=== PATIENT | female | born 1950 | race Caucasian/White ===

== ENCOUNTER 2018-10-03 09:38 | Emergency (ER) | payer MEDICARE, SELFPAY ==
[2018-10-03 09:39] VITALS: BP 185/78; PULSE 49; RESP 20; TEMP 36.7; O2SAT 96; BMI 47.9
--- NOTE | 2018-10-03 10:03 | RAD_ITS ---
STUDY: X-RAY - LUMBAR SPINE REASON FOR EXAM: Female, 68 years old. Right flank pain following a fall. TECHNIQUE: 3 view(s) of the lumbar spine were obtained. COMPARISON: None FINDINGS: Normal lumbar lordosis. There is no substantial scoliosis. There is a normal alignment of the vertebrae. There is multilevel endplate spondylosis of the lumbar vertebrae. There is multi-level degenerative disc disease with multi-level disc space narrowing. There is atherosclerotic calcification of the abdominal aorta without a demonstrated aneurysm. RAD/Lumbar Spine 2 or 3 Views IMPRESSION: Degenerative changes of the spine, as detailed above. Electronically Signed: Eriberto Marshall, at 11:28 EDT , Service support ,
[2018-10-03] MEDS: oxyCODONE 5 MG Tablet PO (10:38)
[2018-10-03 10:47] LABS: Red Blood Cells-Urine 0 SEEN /hpf (0-5)
[2018-10-03 10:51] LABS: Color, Urine Yellow (Yellow); Glucose, Dipstick Normal (Normal); Ketone-Dipstick 5 mg/dl (Negative); Leukocyte Esterase-Dipstick Negative /ul (Negative); Nitrite-Dipstick Negative (Negative); Occult Blood-Urine 10 /ul (Negative); Protein-Dipstick 30 mg/dl (Negative); Urine Bilirubin Dipstick 1 mg/dL (Negative); Urine Clarity Clear (Clear); Urine Urobilinogen Normal (Normal)
[2018-10-03 10:59] LABS: Amorphous Sediment 1+; Bacteria 2+ /hpf (None Seen); Mucous, Urine 2+ /hpf (<or=2+); Squamous Epithelial Cells - UA 0-5 SEEN /hpf (5-10); White Blood Cells 0-5 SEEN /hpf (0-5)
--- NOTE | 2018-10-03 11:45 | ED.VISSUMM ---
- ER Visit Summary Date of Service: 10/03/18 Chief Complaint: Right lower back pain History of Present Illness: The patient is a 68 F who has had right lower back pain for the past 4 days. She describes sharp pain in the right lower back. It does not radiate. She states it is worse with movement and better with rest. Denies any numbness or tingling in her arms or legs. She does have a history of back issues in the past. She took Tylenol without any relief at home. She denies any bowel or bladder incontinence. Physical Examination: Vital signs are reviewed. HEENT exam unremarkable. Heart is regular rate and rhythm. Lungs are clear. Abdomen soft nontender. She has right paraspinal lumbar tenderness. Extremities have no edema or trauma. Her neurologic exam is normal. Test Results: Urinalysis is negative for infection or blood. X-rays of the lumbar spine revealed degenerative disc disease. Emergency Department Course and Treatment: The patient was given 1 oxycodone and she feels much better. This is likely musculoskeletal pain. Patient will be given a short course of oxycodone for pain at home. I reviewed her prescription report and she has no prescriptions for narcotics over the past 2 years. She will need to follow-up with her PCP Treatment Plan: [] Disposition: Discharge Impression: Lumbosacral strain This note was generated with [employer] dictation software. It may contain incorrect words, spelling, and punctuation that were not noted in review of the chart prior to signing ED Disposition - Plan for ED Patient: Disposition: Home or Assisted Living Instructions: BACK AND NECK PAIN, General Prescriptions: Oxycodone HCl/Acetaminophen [Percocet 5/325] 1 tab PO Q6H PRN PRN 3 Days #10 tab PRN Reason: Pain Prescription Printed Referrals: Karla Michaels MD [Primary Care Provider] -
[2018-10-03 12:08] VITALS: BP 148/53; PULSE 52; RESP 18; O2SAT 99
== END 2018-10-03 12:09 | disposition home or self-care (01) ==
PROVIDERS: Emergency Provider Emergency Medicine; Family Provider Internal Medicine; PCP Internal Medicine
DX: S39.012A Strain of muscle, fascia and tendon of lower back, initial encounter (principal); X58.XXXA Exposure to other specified factors, initial encounter; Y93.9 Activity, unspecified; Y92.9 Unspecified place or not applicable; E11.9 Type 2 diabetes mellitus without complications; I10 Essential (primary) hypertension; Z79.899 Other long term (current) drug therapy
CPT/HCPCS: 72100; 81001; 99284

== ENCOUNTER 2018-12-10 12:05 | Emergency (ER) | payer MEDICARE, SELFPAY ==
[2018-12-10 12:06] VITALS: BP 164/62; PULSE 69; RESP 15; TEMP 36.6; O2SAT 96; BMI 48.2
[2018-12-10 12:09] VITALS: BP 164/62; PULSE 63; RESP 15; O2SAT 96
--- NOTE | 2018-12-10 12:15 | ED.VIS.GEN ---
History of Present Illness Chief Complaint: Back Informant: Patient Onset: Today Context: Sudden Onset Timing: Continuous Quality: Pain Location: Right lower back Current Severity: Mild Maximum Severity: Severe Worsened by: Movement Relieved by: Nothing Associated Symptoms: No associated symptoms or radiation Narrative: Patient is a elderly female who presents with acute right low back pain. She was sitting a chair when she felt a pop. She states was unable to ambulate. She has history of herniated disc documented by MRI 1986. She denies bowel bladder dysfunction. She denies buckling of her knees going up or down steps. She denies foot drop. She denies radicular pain. She denies saddle paresthesia or anesthesia. She denies fever, chills night sweats. She denies weight loss or weight gain. She denies dysuria, frequency, urgency or hematuria. She denies gynecologic symptoms. Prior similar symptoms: Yes Recent Illness/Hospitalization: No - Past Medical History (1) History of hypertension Status: Acute (2) History of metabolic syndrome Status: Acute Past Medical History - Allergies and Home Meds Allergies/Adverse Reactions: Allergies diclofenac Allergy (Verified 10/03/18 09:41) Other influenza virus vaccine, specific [influenza virus vacc,specific] Allergy (Verified 10/03/18 09:41) Other Penicillins Allergy (Verified 10/03/18 09:41) Rash Primary Care Physician: Karla Michaels MD [Primary Care Provider] - Prior records reviewed: Yes Surgical History: - - Left total knee arthroplasty Lives: Alone Smoking Status: Never smoker Alcohol: None Drugs: None Review of Systems General: Denies: Chills, Fever, Sweats Eyes: Denies: Visual changes - bilaterally, Diplopia ENT: Denies: Rhinorrhea, Sore throat Cardiovascular: Denies: Chest pain, Palpitations Respiratory: Denies: Dyspnea, Cough, Dyspnea on exertion Gastrointestinal: Denies: Abdominal pain, Nausea, Vomiting, Diarrhea, Melena, Hematochezia Genitourinary: Denies: Dysuria, Hematuria, Frequency Musculoskeletal: Reports: Back pain. Denies: Myalgias, Arthralgias, Neck pain, Swelling, Extremity Pain, -, - Skin: Denies: Rash, Wounds Neurological: Denies: Headache, Weakness, Numbness Endocrine: Denies: Polyuria, Polydipsia Hematologic: Denies: Easy bruising, Easy bleeding Allergy: Denies: Uticaria, Swelling of the mouth Physical Exam Vital Signs/Narrative: Vital Signs Temp Pulse Resp BP Pulse Ox 12/10/18 12:09 63 15 164/62 H 96 12/10/18 12:06 97.9 F 69 15 164/62 H 96 Inital Vital Signs reviewed: Yes General: Well nourished, Well developed, Obese, No Acute Distress Head: Normocephalic, Atraumatic Eyes: Perrl, EOMI ENT: Moist mucous membranes, No rhinorrhea Neck: Supple, Nontender Cardiovascular: Regular rate, Regular rhythm, No murmurs, Normal S1, Normal S2 Respiratory: No distress, CTA bilaterally, Chest nontender Abdomen: Soft, Nontender, Nondistended, Normal bowel sounds Back: Nontender, Normal Inspection, - - Is pain palpation right lower back. Movement causes her pain. Straight leg test is negative right and left. Patella and ankle reflexes are 1+. EHL is intact. 5/5 strength dorsi and plantarflexion of the foot. Normal sensation medial, dorsal and lateral side of right and left foot. Normal perianal sensation. Gait was not tested since patient states she is in too much pain. There are multiple abrasions lower extremity secondary to patient's dog.. Negative for: CVA tenderness, Spinal tenderness Extremities: Nontender, No edema Skin: Normal color, No rash Neurological: Alert, Oriented x3, Cranial nerves II-XII grossly intact, Normal Strength, Normal Sensation Psychological: Normal affect, Normal Mood Diagnostic/Tx/Re-eval - Medical Decision Making Patient with history of herniated disc. She does not recall the level. Patient's exam is not consistent with herniated disc. Will medicate and assess gait and quadricep strength. Since pain is reproducible doubt ureterolithiasis with obstruction or intra-abdominal pathology. Her abdominal exam is normal. She was reassessed at 1330. She is smiling. States the pain is markedly better. Will discharge with short course of opiate analgesia since NSAIDs are contraindicated. ED Disposition - Plan for ED Patient: Disposition: Home or Assisted Living Diagnosis: Acute right-sided low back pain without sciatica Instructions: BACK PAIN (Acute or Chronic) Prescriptions: Hydrocodone Bitart/Apap 5-325 [[place] 5MG-325MG] 1 tablet PO Q6H PRN PRN 3 Days #10 tablet PRN Reason: Pain Transmission Status: Received by [id number] Referrals: Karla Michaels MD [Primary Care Provider] - 3-5 Days if not improving Additional Instructions: Your prescription was electronically transmitted to [facility] pharmacy located in [place], your designated pharmacy of choice
[2018-12-10] MEDS: morphine 8 MG/ML Syringe IV (12:26)
[2018-12-10] MEDS: Ondansetron 4 MG/2 ML Vial IV (12:26)
[2018-12-10 13:47] VITALS: BP 152/66; PULSE 60; RESP 16; O2SAT 96
== END 2018-12-10 13:50 | disposition home or self-care (01) ==
PROVIDERS: Emergency Provider Emergency Medicine; Family Provider Internal Medicine; PCP Internal Medicine
DX: M54.5 Low back pain (principal); I10 Essential (primary) hypertension; E66.9 Obesity, unspecified; Z68.42 Body mass index [BMI] 45.0-49.9, adult; Z79.899 Other long term (current) drug therapy
CPT/HCPCS: 96374; 96375; 99285; A4216; J2405

== ENCOUNTER → 2019-04-24 14:06 | Outpatient (CLI) | payer MEDICARE, SELFPAY ==
[2019-04-24 14:49] LABS: Hemoglobin A1c 8.2 % (4.2-6.3)
== END ==
PROVIDERS: Family Provider Internal Medicine; PCP Internal Medicine; Referring Provider Urology; Visit Provider Urology
DX: E11.9 Type 2 diabetes mellitus without complications (principal); N39.41 Urge incontinence
CPT/HCPCS: 36415; 83036

== ENCOUNTER 2019-05-09 14:24 | Emergency (ER) | payer MEDICARE, SELFPAY ==
[2019-05-09 14:24] VITALS: BP 137/77; BP 162/84; PULSE 64; RESP 18; TEMP 36.8; O2SAT 96; BMI 51.5
--- NOTE | 2019-05-09 15:03 | ED.VIS.GEN ---
History of Present Illness Chief Complaint: Fall Informant: Patient Onset: Today Current Severity: Mild Maximum Severity: Mild Narrative: Patient presents with left anterior knee pain after a fall. She is had 2 prior surgeries on her left knee. She states she went to the grocery store and got groceries. She put groceries away and when walking into the front room of her home her knee gave out on her and she fell. She denies any other injury from the fall. She was not able to get herself up and EMS was called. - Past Medical History (1) History of hypertension Status: Chronic Past Medical History - Allergies and Home Meds Allergies/Adverse Reactions: Allergies diclofenac Allergy (Verified 05/09/19 14:28) Other influenza virus vaccine, specific [influenza virus vacc,specific] Allergy (Verified 05/09/19 14:28) Other Penicillins Allergy (Verified 05/09/19 14:28) Rash Primary Care Physician: Karla Michaels MD [Primary Care Provider] - Prior records reviewed: Yes Surgical History: - - Left total knee arthroplasty Smoking Status: Never smoker Review of Systems General: Denies: Chills, Fever ENT: Denies: Bilateral ear pain Cardiovascular: Denies: Chest pain Respiratory: Denies: Dyspnea, Cough Gastrointestinal: Denies: Abdominal pain, Nausea, Vomiting, Diarrhea Musculoskeletal: Reports: Arthralgias, Extremity Pain Skin: Denies: Rash Neurological: Denies: Headache, Parasthesia Psych: Denies: Depression Allergy: Denies: Uticaria Physical Exam Vital Signs/Narrative: Vital Signs Temp Pulse Resp BP Pulse Ox 05/09/19 14:24 98.3 F 64 18 137/77 H 96 Inital Vital Signs reviewed: Yes General: Well nourished, Well developed Head: Normocephalic ENT: Moist mucous membranes Cardiovascular: Regular rate, Regular rhythm Respiratory: No distress, CTA bilaterally Abdomen: Soft, Nontender Extremities: - - Reproducible tenderness palpation over the patella. She is able to straight leg raise her leg off of the bed. No tenderness at the medial or lateral joint lines. No significant erythema or warmth. Skin: Normal color Neurological: Alert, Oriented x3 Psychological: Normal affect Diagnostic/Tx/Re-eval Impressions Knee X-Ray 05/09/19 15:10 IMPRESSION: Status post total knee replacement. There is good alignment. Soft tissue swelling. Electronically Signed: Eriberto Marshall, at 15:26 EST , Service support , 05/09/19 15:10 Knee 4 or More Views [RAD] Stat - Medical Decision Making X-ray results are discussed with the patient. She is in no acute distress. [place] wrap will be applied. She will ice and elevate her knee. She can use Tylenol as needed at home for pain. ED Disposition - Plan for ED Patient: Disposition: Home or Assisted Living Diagnosis: Knee contusion Instructions: CONTUSION, Lower Extremity Referrals: Karla Michaels MD [Primary Care Provider] - 1 Week if not improving
--- NOTE | 2019-05-09 15:10 | RAD_ITS ---
STUDY: X-RAY - LEFT KNEE REASON FOR EXAM: Female, 68 years old. PAIN S/P FALL AT HOME -- HX OF REPLACEMENT TECHNIQUE: 4 view(s) of the knee. COMPARISON: Comparison made with prior examination dated October 16, 2012. FINDINGS: Normal visualized distal femur. Normal visualized proximal tibia and fibula. Normal proximal tibiofibular articulation. The patient is status post total knee replacement. There is good alignment. No evidence of fracture or dislocation. Soft tissue swelling. RAD/Knee 4 or More Views IMPRESSION: Status post total knee replacement. There is good alignment. Soft tissue swelling. Electronically Signed: Eriberto Marshall, at 15:26 EST , Service support ,
[2019-05-09 16:06] VITALS: RESP 18
== END 2019-05-09 16:06 | disposition home or self-care (01) ==
PROVIDERS: Emergency Provider Emergency Medicine; PCP Internal Medicine
DX: S80.02XA Contusion of left knee, initial encounter (principal); W18.39XA Other fall on same level, initial encounter; Y93.01 Activity, walking, marching and hiking; Y92.008 Other place in unspecified non-institutional (private) residence as the place of occurrence of the external cause; I10 Essential (primary) hypertension
CPT/HCPCS: 73564; 99284

== ENCOUNTER 2021-03-18 13:50 | Emergency (ER) | payer MEDICARE, SELFPAY ==
[2021-03-18 13:51] VITALS: BP 147/72; PULSE 87; RESP 18; TEMP 36.8; O2SAT 99; BMI 40.3
--- NOTE | 2021-03-18 15:01 | RAD_ITS ---
STUDY: X-RAY - RIGHT KNEE REASON FOR EXAM: Female, 70 years old. r knee injury TECHNIQUE: 2 view(s) of the knee. COMPARISON: None. FINDINGS: Normal visualized distal femur. Normal visualized proximal tibia and fibula. Normal proximal tibiofibular articulation. There is no demonstrated fracture. There is severe degenerative arthrosis of the medial femorotibial compartment with severe joint space narrowing. Normal lateral femorotibial compartment. There is mild degenerative arthrosis of the patellofemoral articulation. There is no demonstrated joint effusion. The soft tissue structures are unremarkable. RAD/Knee 1 or 2 Views IMPRESSION: Degenerative arthrosis. Electronically Signed: Sascha Lundberg MD at 16:19 EST , Service support ,
--- NOTE | 2021-03-18 16:05 | ED.VIS.LOWEX ---
HPI History of Present Illness Chief Complaint: Lower Extremity Injury Narrative Narrative: 70-year-old female presenting with right knee pain. She states she had a mechanical fall and struck her right knee. She believes her leg just gave out on her. She states that she was on the floor and was unable to get up on her own but this is her baseline. Since she could not get up she called an ambulance to get her up and was transported to the ER. She is not dizzy or lightheaded. She states she feels well. She complains of right knee pain. She has not yet tried ambulate [facility] Medical History Borderline diabetes HTN (hypertension) Home Medications atenolol [Tenormin] 25 mg PO DAILY 11/15/14 [History Last Taken Unknown] gabapentin 300 mg PO BIDCM 11/15/14 [History Last Taken Unknown] oxybutynin chloride 10 mg PO DAILY 05/09/19 [History Last Taken Unknown] Allergy/AdvReac Type Severity Reaction Status Date / Time diclofenac Allergy Other Verified 03/18/21 13:53 influenza virus vaccine, Allergy Other Verified 03/18/21 13:53 specific [influenza virus vacc,specific] Penicillins Allergy Rash Verified 03/18/21 13:53 Surgical History History of hysterectomy History of left knee replacement Social History Smoking Status: Never smoker [facility] ED Constitutional Constitutional ED: Denies chills, fever(s) or subjective Eyes Eyes: Denies blurry vision or change in vision ENT ENT ED: Denies rhinorrhea or sore throat Cardiovascular Cardiovascular: Denies chest pain or palpitations Respiratory/Chest Respiratory/Chest: Denies cough or dyspnea Gastrointestinal Gastrointestinal: Denies abdominal pain, nausea or vomiting Genitourinary Genitourinary ED: Denies dysuria or hematuria Musculoskeletal Musculoskeletal: Reports other Details: Right knee pain Integumentary Reports other Details: Bruising over the right knee Neurologic Neurologic: Denies headache(s) or weakness Psychiatric Psychiatric: Denies anxiety or depression EXAM Physical Exam Const Vital Signs: 03/18/21 13:51 Temperature 98.2 F Temperature Source Temporal Pulse Rate 87 Respiratory Rate 18 Blood Pressure 147/72 H Blood Pressure Mean 97 Pulse Ox 99 Oxygen Delivery Method Room Air Positive obese General Appearance ED: NAD Nutritional Appearance: obese HEENT normocephalic and atraumatic Eyes PERRL Resp normal respiratory effort and clear to auscultation bilaterally Cardio regular rate and regular rhythm Extremity Extremity Narrative: Tenderness palpation of right patella. There is slight bruising over the patella. No deformities. Extensor mechanism intact on the right knee. No ligamentous laxity. Neuro oriented x3 Sensorium / Orientation: alert Psych mental status grossly normal MDM MDM MDM Narrative Medical decision making narrative: Patient presenting with right knee pain after mechanical fall. X-ray of the right knee is performed on my interpretation there is no acute fracture or subluxation. There is osteoarthritis present on my interpretation. Radiologist does agree. Patient is offered pain medication but declines. After her x-rays negative she was ambulated and had a stable gait. Patient states that she has a cane and a walker at home that she uses. Impression: 1. Mechanical fall 2. Right knee contusion Discharge Plan Triage Chief Complaint: Lower Extremity Injury ED Provider: Hema Bautista Dx/Rx/DC Orders Instructions: ED Contusion, Lower Extremity Prescriptions: No Action atenolol [Tenormin] 25 MG tablet 25 mg PO DAILY RF: 0 gabapentin 300 MG capsule 300 mg PO BIDCM RF: 0 oxybutynin chloride 10 MG tablet extended release 24hr 10 mg PO DAILY RF: 0 Primary Care Provider: Karla Michaels Referrals: Karla Michaels MD [Primary Care Provider] - Disposition Disposition: Home, Self Care Discharge Date/Time: 03/18/21 16:04
== END 2021-03-18 16:04 | disposition home or self-care (01) ==
PROVIDERS: Emergency Provider Student in an Organized Health Care Education/Training Program; PCP Internal Medicine
DX: S80.01XA Contusion of right knee, initial encounter (principal); E66.9 Obesity, unspecified; I10 Essential (primary) hypertension; Z79.899 Other long term (current) drug therapy; W19.XXXA Unspecified fall, initial encounter
CPT/HCPCS: 73560; 99284